=== PATIENT | female | born 1955 | race African-American/Black ===

== ENCOUNTER → 2016-09-08 | Outpatient (CLI) | payer BC ==
[2013-05-12 11:00] VITALS: BP 139/84
[~2016-09-08] MED LIST: ASPI-482 PO; CARV3.122 PO; FURO40TA4 PO; LOSA25TA4 PO; POTA20TA4 PO; losartan PO
--- NOTE | 2016-09-08 14:13 | CARD ---
APPROVED REPORT EXAM: Two-dimensional and M-mode echocardiogram with Doppler and color Doppler. Other Information Quality : GoodHR: 84bpm Rhythm : Pacemaker INDICATION Cardiovascular disease RISK FACTORS Hypertension 2D DIMENSIONS RVDd2.2 (2.9-3.5cm)Left Atrium(2D)3.6 (1.6-4.0cm) IVSd1.2 (0.7-1.1cm)Aortic Root(2D)2.5 (2.0-3.7cm) LVDd5.5 (3.9-5.9cm)LVOT Diameter2.0 (1.8-2.4cm) PWd1.2 (0.7-1.1cm)LVDs5.0 (2.5-4.0cm) FS (%) 9.7 %SV31.1 ml Aortic Valve AoV Peak Ronan.155.2cm/sAoV VTI28.4cm AO Peak GR.9.6mmHgLVOT Peak Ronan.91.9cm/s AO Mean GR.5mmHgAVA (VMAX)1.94cm2 AI P 1/2 Rury234iu Mitral Valve MV E Ehidiwrr396.7cm/sMV E Peak Gr.8mmHg MV DECEL [id number] A Pwflywkd891.8cm/s MV E Mean Gr.3mmHgE/A Ratio0.8 MV A Cbksdmda15rm Pulmonary Valve PV Peak Vevlmaqt72.2cm/s Tricuspid Valve TR P. Xhzdyqkn357je/sTR Peak Gr.35mmHg Pulmonary Vein S1 Reesfsbk71.4cm/sD2 Lspwdgri08.2cm/s PVa zqjlidld19gewa LEFT VENTRICLE The left ventricle is normal size. There is mild concentric left ventricular hypertrophy. Left ventri zachary systolic function is moderately impaired. The Ejection Fraction is 35-40%. Transmitral Doppler fl ow pattern is Grade I-abnormal relaxation pattern. No left ventricle thrombus noted on this study. RIGHT VENTRICLE The right ventricle is normal size. There is normal right ventricular wall thickness. The right ventr icular systolic function is normal. There is a pacemaker/defibrillator lead in the right ventricle. ATRIA The left atrium is mild to moderately dilated. The right atrium size is normal. The interatrial septu m is intact with no evidence for an atrial septal defect or patent foramen ovale as noted on 2-D or D oppler imaging. AORTIC VALVE The aortic valve is mildly sclerotic. The aortic valve is trileaflet. Doppler and Color Flow revealed mild aortic regurgitation. There is no significant aortic valvular stenosis. MITRAL VALVE Mitral annular calcification is mild. The mitral valve leaflets are thickened. There is no evidence o f mitral valve prolapse. There is no mitral valve stenosis. Doppler and Color Flow revealed moderate mitral regurgitation. TRICUSPID VALVE Doppler and Color Flow revealed mild tricuspid regurgitation. The pulmonary artery systolic pressure is estimated at 38 mmHg. PULMONIC VALVE Doppler and Color Flow revealed mild pulmonic valvular regurgitation. There is no pulmonic valvular s tenosis. GREAT VESSELS The aortic root is normal in size. The ascending aorta is normal in size. The pulmonary artery is nor mal. The IVC is normal in size and collapses >50% with inspiration. PERICARDIAL EFFUSION There is no evidence of significant pericardial effusion. Critical Notification Critical Value: No <Conclusion> The left ventricle is normal size. Left ventricle systolic function is moderately impaired. The Ejection Fraction is 35-40%. There is mild concentric left ventricular hypertrophy. There is a pacemaker/defibrillator lead in the right ventricle. There is no significant aortic valvular stenosis. Doppler and Color Flow revealed mild aortic regurgitation. Doppler and Color Flow revealed moderate mitral regurgitation. Doppler and Color Flow revealed mild tricuspid regurgitation. The pulmonary artery systolic pressure is estimated at 38 mmHg.
== END | disposition home or self-care (01) ==
LOC: ECHO 08:09
PROVIDERS: ATTEND Internal Medicine Cardiovascular Disease
DX: I25.10 Atherosclerotic heart disease of native coronary artery without angina pectoris (principal); I10 Essential (primary) hypertension; I51.7 Cardiomegaly; I35.1 Nonrheumatic aortic (valve) insufficiency; I34.0 Nonrheumatic mitral (valve) insufficiency
CPT/HCPCS: 93306

== ENCOUNTER → 2017-09-08 | Outpatient (CLI) | payer BC | END | disposition home or self-care (01) | LOC: ECHO 08:06 | DX: I42.8 Other cardiomyopathies (principal); I08.3 Combined rheumatic disorders of mitral, aortic and tricuspid valves; I27.20 Pulmonary hypertension, unspecified; Z95.0 Presence of cardiac pacemaker | CPT/HCPCS: 93306 ==

== ENCOUNTER → 2018-09-04 | Outpatient (CLI) | payer BC ==
[2013-05-12 11:00] VITALS: BP 139/84
[~2018-09-04] MED LIST changes: +CARV3.1210 PO; -CARV3.122 PO; -LOSA25TA4 PO; +LOSA25TA54 PO
--- NOTE | 2018-09-04 09:40 | CARD ---
MR#: [id number] Date of Study: 09/04/2018 Ordering Physician: ELI RODRIGUEZ, Referring Physician: ELI RODRIGUEZ, Tech: Lory Joyner APPROVED REPORT EXAM: Two-dimensional and M-mode echocardiogram with Doppler and color Doppler. Other Information Quality : AverageHR: 86bpm INDICATION Cardiomyopathy Surgery/Intervention ICD/Pacemaker: RISK FACTORS Hypertension 2D DIMENSIONS Left Atrium(2D)4.8 (1.6-4.0cm)IVSd1.3 (0.7-1.1cm) Aortic Root(2D)2.9 (2.0-3.7cm)LVDd6.4 (3.9-5.9cm) LVOT Diameter1.9 (1.8-2.4cm)PWd1.2 (0.7-1.1cm) LVDs5.1 (2.5-4.0cm)FS (%) 21.1 % SV87.9 mlLVEF(%)42.1 (>50%) Aortic Valve AoV Peak Ronan.150.3cm/sAoV VTI26.1cm AO Peak GR.9.0mmHgLVOT Peak Ronan.73.0cm/s LVOT VTI 13.15cmAO Mean GR.5mmHg IMANI (VMAX)1.34ns2SJN (VTI)1.46cm2 AI P 1/2 Rlbg276gr Mitral Valve MV E Sicvgmdy992.2cm/sMV E Peak Gr.134mmHg MV DECEL SUXO843vjAB A Otdhqafa147.7cm/s MV E Mean Gr.5mmHgMV ILG62nc E/A Ratio0.8MVA (PHT)3.61cm2 TDI E/Lateral E'18.2E/Medial E'19.3 Pulmonary Valve PV Peak Hprxoldy44.1cm/sPV Peak Grad.3mmHg Tricuspid Valve TR P. Rbpfugan844kl/sTR Peak Gr.33mmHg Pulmonary Vein S1 Owkbtgcm95.5cm/sD2 Ohionfkq71.8cm/s PVa krnibykp936cnis LEFT VENTRICLE The Left Ventricle is moderately dilated. There is moderate concentric left ventricular hypertrophy. The left ventricular systolic function is moderately impaired. The Ejection Fraction is 35%. Transmit ral Doppler flow pattern is Grade I-abnormal relaxation pattern. RIGHT VENTRICLE The right ventricle is normal size. There is normal right ventricular wall thickness. The right ventr icular systolic function is normal. There is a pacemaker lead in the right ventricle. ATRIA The left atrium is moderately dilated. The right atrium is borderline dilated. The interatrial septum is intact with no evidence for an atrial septal defect or patent foramen ovale as noted on 2-D or Do ppler imaging. AORTIC VALVE The aortic valve is normal in structure and function. Doppler and Color Flow revealed mild aortic reg urgitation. There is no significant aortic valvular stenosis. MITRAL VALVE The mitral valve is thickened but opens well. There is no evidence of mitral valve prolapse. There is no mitral valve stenosis. Doppler and Color-flow revealed mild mitral regurgitation. TRICUSPID VALVE The tricuspid valve is normal in structure and function. Doppler and Color Flow revealed mild tricusp id regurgitation. There is no tricuspid valve stenosis. PULMONIC VALVE The pulmonary valve is normal in structure and function. Doppler and Color Flow revealed trace pulmon ic valvular regurgitation. GREAT VESSELS The aortic root is normal in size. The IVC is dilated and collapses >50% with inspiration. PERICARDIAL EFFUSION There is no evidence of significant pericardial effusion. Critical Notification Critical Value: No <Conclusion> The left ventricular systolic function is moderately impaired. The Ejection Fraction is 35%. Transmitral Doppler flow pattern is Grade I-abnormal relaxation pattern. There is a pacemaker/ICD lead in the right atrium and ventricle. The left atrium is moderately dilated. Mild aortic regurgitation. Mild mitral regurgitation. Mild tricuspid regurgitation. There is no evidence of significant pericardial effusion. Signed by : Justus Mar, Electronically Approved : 09/04/2018 09:39:53
== END | disposition home or self-care (01) ==
LOC: ECHO 08:09
PROVIDERS: ATTEND Internal Medicine Cardiovascular Disease
DX: I08.3 Combined rheumatic disorders of mitral, aortic and tricuspid valves (principal); I11.9 Hypertensive heart disease without heart failure; R00.8 Other abnormalities of heart beat
CPT/HCPCS: 93306

== ENCOUNTER → 2020-10-14 | Outpatient (CLI) | payer BC ==
[2013-05-12 11:00] VITALS: BP 139/84
--- NOTE | 2020-10-15 12:31 | CARD ---
MR#: [id number] Date of Study: 10/14/2020 Ordering Physician: ELI RODRIGUEZ, Referring Physician: ELI RODRIGUEZ, Tech: Ileana Hsieh [facility] APPROVED REPORT EXAM: Two-dimensional and M-mode echocardiogram with Doppler and color Doppler. Other Information Quality : AverageHR: 70bpm Rhythm : NSR INDICATION Cardiomyopathy RISK FACTORS Hypertension 2D DIMENSIONS RVDd2.8 (2.9-3.5cm)Left Atrium(2D)4.3 (1.6-4.0cm) IVSd1.2 (0.7-1.1cm)Aortic Root(2D)3.0 (2.0-3.7cm) LVDd5.2 (3.9-5.9cm)LVOT Diameter1.9 (1.8-2.4cm) PWd1.1 (0.7-1.1cm)LVDs4.2 (2.5-4.0cm) FS (%) 18.7 %SV49.4 ml LVEF(%)38.4 (>50%) Aortic Valve AoV Peak Ronan.159.9cm/sAoV VTI30.4cm AO Peak GR.10.2mmHgLVOT Peak Ronan.52.9cm/s AO Mean GR.5mmHgAVA (VMAX)0.92cm2 Mitral Valve MV E Uisvzyng29.7cm/sMV DECEL JGKW157xt MV A Xqgvmnep157.7cm/sE/A Ratio0.7 LEFT VENTRICLE The Left Ventricle is mildly dilated. There is mild concentric left ventricular hypertrophy. The syst olic function is severely impaired. EF 25% There is severe global hypokinesis of the left ventricle w ith abnormal septal motion suggestive of conduction defect. Tissue Doppler imaging reveals moderate l eft ventricular diastolic dysfunction. No left ventricle thrombus noted on this study. RIGHT VENTRICLE The right ventricle is normal size. The right ventricle is mildly hypertrophied. The right ventricula r systolic function is normal. There is a pacing lead noted in the RA/RV. ATRIA The left atrium is mildly dilated. The right atrium is borderline dilated. The interatrial septum is intact with no evidence for an atrial septal defect or patent foramen ovale as noted on 2-D or Dopple r imaging. AORTIC VALVE The aortic valve is normal in structure and function. Doppler and Color Flow revealed mild aortic reg urgitation. There is no significant aortic valvular stenosis. MITRAL VALVE The mitral valve is thickened with rheumatic appearance. There is no evidence of mitral valve prolaps e. There is no mitral valve stenosis. Doppler and Color-flow revealed moderate eccentric posterior mi tral regurgitation. TRICUSPID VALVE The tricuspid valve is normal in structure and function. Doppler and Color Flow revealed no tricuspid valve regurgitation noted. There is no tricuspid valve stenosis. PULMONIC VALVE Doppler and Color Flow revealed no pulmonic valvular regurgitation. There is no pulmonic valvular cherie nosis. GREAT VESSELS The aortic root is normal in size. The ascending aorta is normal in size. The IVC is normal in size a nd collapses >50% with inspiration. PERICARDIAL EFFUSION There is no evidence of significant pericardial effusion. Critical Notification Critical Value: No <Conclusion> The systolic function is severely impaired. EF 25% There is severe global hypokinesis of the left ventricle with abnormal septal motion suggestive of co nduction defect. There is a pacing lead noted in the RA/RV. Doppler and Color Flow revealed mild aortic regurgitation. Doppler and Color-flow revealed moderate eccentric posterior mitral regurgitation. Signed by : Brendan Cardenas, Electronically Approved : 10/15/2020 12:31:06
== END ==
LOC: ECHO 15:22
PROVIDERS: ATTEND Internal Medicine Cardiovascular Disease
DX: I08.0 Rheumatic disorders of both mitral and aortic valves (principal); I25.10 Atherosclerotic heart disease of native coronary artery without angina pectoris
CPT/HCPCS: 93306

== ENCOUNTER 2020-12-19 08:36 | Outpatient (CLI) | payer BC ==
[~2020-12-19] VITALS: Ht 177.8 cm; Wt 86.4 kg
[2020-12-19] MEDS ORDERED: ceFAZolin SODIUM 1 GM in IV NORMAL SALINE 100ML 100 ML IRR ONE (09:00)
[2020-12-19 09:16] LABS: HEMATOCRIT 37.6 % (36.0-47.0); HEMOGLOBIN 12.8 g/dL (12.0-15.5); RED BLOOD COUNT 4.15 x10^6/uL (3.50-5.40); RED CELL DISTRIBUTION WIDTH 15.3 % (11.5-14.5); WHITE BLOOD COUNT 3.9 x10^3/uL (4.0-11.0)
[2020-12-19] MEDS ORDERED: MULT-245 PO (09:16)
[2020-12-19] MEDS ORDERED: CRESTOR5 MG PO (09:16)
[2020-12-19] MEDS ORDERED: VITA1TAB31 PO (09:16)
[2020-12-19] MEDS ORDERED: ASCO500C PO (09:16)
[2020-12-19 09:27] LABS: CALCIUM 8.8 mg/dL (8.5-10.1); GFR 67.1; POTASSIUM 4.2 mmol/L (3.5-5.1)
[2020-12-19 09:33] VITALS: BP 175/93
--- NOTE | 2020-12-19 09:52 | PDOC ---
MODERATE SEDATION ASSESSMENT RISKS/ALTERNATIVES Risks/Alternatives Risks and alternatives of this type of sedation and procedure discussed with: RISK/ALTERNATIVES: Patient H & P ON CHART H & P H & P on chart and reviewed for co-morbid conditions and appropriate labs. H&P ON CHART: Yes STATUS PREG STATUS ASSESSED: N/A MEDS/ALLERGIES REVIEWED Meds/Allergies Reviewed Medications and Allergies including time and route of recently administered narcotics and sedatives. MEDS/ALLERGIES REVIEWED: Yes ASA RATING ASA RATING: II AIRWAY ASSESSMENT Airway Assessment Airway patency, oral function limitations, presence of caps, crowns, dentures, partials, and ability to extend neck assessed. AIRWAY ASSESSMENT: Yes MALLAMPATI SCORE MALLAMPATI SCORE: II PRE-SEDATION ASSESSMENT PRE-SEDATION ASSESSMENT: Yes YAKOV MCCONNELL MD Dec 19, 2020 09:52
[2020-12-19] MEDS ORDERED: MIDAZOLAM HCL/PF 5 MG/5 ML VIAL. ONE (09:58)
[2020-12-19] MEDS ORDERED: fentaNYL PF VIAL 100 MCG/2 ML VIAL ONE (09:58)
[2020-12-19] MEDS ORDERED: LIDOCAINE 2%/EPI 1:100,000 20 ML VIAL. ONE (10:02)
[2020-12-19] MEDS ORDERED: MIDAZOLAM HCL/PF 5 MG/5 ML VIAL. IV ONE (10:45)
[2020-12-19] MEDS ORDERED: fentaNYL PF VIAL 100 MCG/2 ML VIAL IV ONE (10:45)
[2020-12-19] MEDS ORDERED: LIDOCAINE 2%/EPI 1:100,000 20 ML VIAL. IJ ONE (10:45)
[2020-12-19 11:02] VITALS: BP 136/73
--- NOTE | 2020-12-19 11:16 | CARD ---
MR#: [id number] Date of Study: 12/19/2020 Ordering Physician: YAKOV MAR, Referring Physician: YAKOV MAR, Tech: APPROVED REPORT EXAM Biotronik biventricular implantable cardioverter defibrillator/cardiac resynchronization therapy-defi brillator (BiVICD/GUEST SERVICE AIDE-D) generator change MODERATE SEDATION TIME: 37 MIN FLUORO TIME: 0.0 MIN DOSE: 1.05 GYCM2 EBL: 10 ml INDICATIONS Nonischemic cardiomyopathy, class II NYHA chronic systolic heart failure and prolonged QRS interval s /p biventricular ICD/GUEST SERVICE AIDE-D implantation in the past presenting with battery depletion IMPLANTED DEVICES After explaining the risk, benefits and alternative options, informed consent was obtained from parviz dunn. Patient was brought to the cardiac [facility] and her left chest and shoulder were prepped and drap ed in the usual fashion. 30 cc of 2% lidocaine was infiltrated into the skin and subcutaneous tissues for local anesthesia. An incision was made over the left infraclavicular fossa and using blunt disse ction and cautery, the pocket was opened, the capsule exposed and opened and the previously placed ge nerator removed. The leads were detached from the generator, interrogated and found to be functioning well and reattached to a new Biotronik biventricular ICD/GUEST SERVICE AIDE-D generator model [employer] Qamar 7 HF-T, se rial #[id number]. This was placed in the pocket that was subsequently closed in three layers. Hemostasi s was secured. The atrial lead showed a sensing amplitude of 3.0 mV, impedance of 490 ohms and a threshold of 1.0 V. The right ventricular lead showed a sensing amplitude of 10 mV, impedance of 610 ohms and a threshol d of 1.1 V. The left ventricular lead showed a sensing amplitude of 11 mV, impedance of 800 ohms and a threshold of 1.0 V. Patient tolerated the procedure well. There were no immediate complications. CONCLUSION Successful Biotronik biventricular ICD/GUEST SERVICE AIDE-D generator change in a patient with known history of marina schemic cardiomyopathy, chronic systolic heart failure and prolonged QRS interval. Signed by : Yakov Mar, Electronically Approved : 12/19/2020 11:16:23
[2020-12-19 11:25] VITALS: BP 147/83
[2020-12-19 11:40] VITALS: BP 145/90
[2020-12-19 11:55] VITALS: BP 109/69
[2020-12-19 12:19] VITALS: BP 152/79
--- NOTE | 2020-12-19 12:43 | NUR ---
Discharge Note: KACI DORSEY Discharge instructions and discharge home medications reviewed with Patient and and a copy given. All questions have been answered and understanding verbalized. The following instructions and handouts were given: Moderate Sedation & Incision care. Discontinued lines and drains: Left FA IV dc'd, tip intact and bandage applied. Patient discharged to home with via Personal vehicle.
== END 2020-12-19 12:46 | disposition home or self-care (01) ==
LOC: CCL 08:36
PROVIDERS: ATTEND Internal Medicine Cardiovascular Disease
DX: Z45.02 Encounter for adjustment and management of automatic implantable cardiac defibrillator (principal); I11.0 Hypertensive heart disease with heart failure; I50.22 Chronic systolic (congestive) heart failure; Z90.49 Acquired absence of other specified parts of digestive tract; Z98.890 Other specified postprocedural states; Z79.899 Other long term (current) drug therapy; Z79.82 Long term (current) use of aspirin
CPT/HCPCS: 33264; 36415; 80048; 85027; 99152; 99153; C1882; J0690; J2250; J3010; J3490; 33263

== ENCOUNTER → 2021-05-14 | Outpatient (CLI) | payer MEDICARE ==
[~2021-05-14] MED LIST changes: +ASCO500C PO; +CRESTOR5 MG PO; +MULT-245 PO; +POTA-121 PO; -POTA20TA4 PO; +VITA1TAB31 PO
--- NOTE | 2021-05-14 10:49 | RAD ---
XR CHEST 2V 05/14/2021 Reason: SOA Comparison: None Technique: PA and lateral radiographs of the chest Findings: Left cardiac pacer device with 3 leads. There is bibasilar patchy linear airspace opacity. Possible t race right pleural effusion. No pneumothorax. The cardiomediastinal silhouette is enlarged. No pulmon cem vascular redistribution. Impression: Bibasilar opacity may relate to atelectasis or acute airspace disease. Electronically signed by: Osorio Adhikari (05/14/2021 10:46 AM) [id number]
[2021-05-14 10:58] LABS: ALBUMIN 3.2 g/dL (3.4-5.0); CREATININE 0.8 mg/dL (0.6-1.0); DIRECT BILIRUBIN 0.2 mg/dL (0.0-0.2); GFR 86.8; MAGNESIUM 2.1 mg/dL (1.8-2.4); POTASSIUM 4.1 mmol/L (3.5-5.1); TOTAL BILIRUBIN 0.4 mg/dL (0.2-1.0); TOTAL PROTEIN 7.3 g/dL (6.4-8.2)
[2021-05-14 11:00] LABS: CHOLESTEROL/HDL RATIO 2.2
[2021-05-14 11:01] LABS: BASO % 1 % (0-3); EOS # 0.2 x10^3/uL (0.0-0.7); EOS % 5 % (0-3); HEMATOCRIT 37.8 % (36.0-47.0); HEMOGLOBIN 12.4 g/dL (12.0-15.5); LYMPH # 1.7 x10^3/uL (1.0-4.8); LYMPH % 34 % (24-48); MEAN CORPUSCULAR HEMOGLOBIN 30 pg (25-35); MEAN CORPUSCULAR HGB CONC 33 g/dL (31-37); MEAN CORPUSCULAR VOLUME 91 fL (79-100); MONO # 0.4 x10^3/uL (0.0-1.1); MONO % 8 % (0-9); NEUT # 2.6 x10^3/uL (1.8-7.7); NEUT % 52 % (31-73); PLATELET COUNT 235 x10^3/uL (140-400); RED BLOOD COUNT 4.16 x10^6/uL (3.50-5.40); RED CELL DISTRIBUTION WIDTH 14.8 % (11.5-14.5)
== END ==
LOC: RAD 10:06
PROVIDERS: ATTEND Internal Medicine Cardiovascular Disease
DX: R91.8 Other nonspecific abnormal finding of lung field (principal); R06.02 Shortness of breath; I10 Essential (primary) hypertension; E78.5 Hyperlipidemia, unspecified; I50.22 Chronic systolic (congestive) heart failure; Z95.0 Presence of cardiac pacemaker
CPT/HCPCS: 36415; 71046; 80048; 80061; 80076; 83735; 85025

== ENCOUNTER → 2021-06-19 | Outpatient (CLI) | payer MEDICARE ==
--- NOTE | 2021-06-20 16:49 | CARD ---
MR#: [id number] Date of Study: 06/19/2021 Ordering Physician: ELI RODRIGUEZ, Referring Physician: ELI RODRIGUEZ, Tech: Ileana Hsieh [facility] APPROVED REPORT EXAM: Two-dimensional and M-mode echocardiogram with Doppler and color Doppler. Other Information Quality : Average INDICATION Cardiomyopathy RISK FACTORS Hypertension Obesity Hyperlipidemia 2D DIMENSIONS RVDd3.1 (2.9-3.5cm)Left Atrium(2D)4.2 (1.6-4.0cm) IVSd1.3 (0.7-1.1cm)Aortic Root(2D)2.9 (2.0-3.7cm) LVDd4.7 (3.9-5.9cm)LVOT Diameter1.9 (1.8-2.4cm) PWd1.4 (0.7-1.1cm)LVDs4.7 (2.5-4.0cm) FS (%) 0.1 %SV0.3 ml LVEF(%)0.3 (>50%) Aortic Valve AoV Peak Ronan.163.6cm/sAoV VTI28.8cm AO Peak GR.10.7mmHgAO Mean GR.4mmHg AI P 1/2 [id number] Mitral Valve MV E Gafewkqj82.8cm/sMV DECEL [id number] MV A Xzdsgywy594.7cm/sE/A Ratio0.6 Tricuspid Valve TR P. Bcdhfqnx090qb/sTR Peak Gr.31mmHg LEFT VENTRICLE The left ventricle is normal size. There is mild concentric left ventricular hypertrophy. The ejectio n fraction is severely impaired. Estimated ejection fraction 25%. There is global hypokinesis of the left ventricle. Transmitral Doppler flow pattern is Grade I-abnormal relaxation pattern. RIGHT VENTRICLE The right ventricle is normal size. There is normal right ventricular wall thickness. The right ventr icular systolic function is normal. There is a pacemaker/ICD lead in the RA/RV. ATRIA The left atrium is moderately dilated. The right atrium size is normal. The interatrial septum is int act with no evidence for an atrial septal defect or patent foramen ovale as noted on 2-D or Doppler i maging. AORTIC VALVE The aortic valve is normal in structure and function. Doppler and Color Flow revealed mild aortic reg urgitation. There is no significant aortic valvular stenosis. MITRAL VALVE The mitral valve is normal in structure and function. There is no evidence of mitral valve prolapse. There is no mitral valve stenosis. Doppler and Color-flow revealed moderate eccentric posteriorly dir ected mitral regurgitation. TRICUSPID VALVE The tricuspid valve is normal in structure and function. Doppler and Color Flow revealed mild tricusp id regurgitation. Estimated PAP 35 mmHg. There is no tricuspid valve stenosis. PULMONIC VALVE Doppler and Color Flow revealed mild pulmonic valvular regurgitation. There is no pulmonic valvular s tenosis. GREAT VESSELS The aortic root is normal in size. The ascending aorta is normal in size. The IVC is normal in size a nd collapses >50% with inspiration. PERICARDIAL EFFUSION There is no evidence of significant pericardial effusion. Critical Notification Critical Value: No <Conclusion> The ejection fraction is severely impaired. Estimated ejection fraction 25%. There is global hypokinesis of the left ventricle. There is a pacemaker/ICD lead in the RA/RV. Doppler and Color-flow revealed moderate eccentric posteriorly directed mitral regurgitation. Signed by : Brendan Cardenas, Electronically Approved : 06/20/2021 16:49:31
== END ==
LOC: ECHO 07:32
PROVIDERS: ATTEND Internal Medicine Cardiovascular Disease
DX: I08.8 Other rheumatic multiple valve diseases (principal); I42.8 Other cardiomyopathies; I11.9 Hypertensive heart disease without heart failure
CPT/HCPCS: 93306; C8929